=== PATIENT | female | born 1985 | race Caucasian/White ===

== ENCOUNTER 2018-04-10 18:20 | Observation (INO) | payer MEDICAID, OTHER ==
[~2018-04-10 18:20] MED LIST: LIDOCAINE 2% INJ-PF (20 MG/ML) 2 ML AMPUL ONE; ONDANSETRON HCL INJ/PF 4 MG/2 ML SDV ONE
[2018-04-10] MEDS ORDERED: FENTANYL CITRATE INJ/PF 100 MCG/2 ML AMPUL IV ONE (19:38)
[2018-04-10] MEDS ORDERED: NORMAL SALINE 1000 ML 1,000 ML IV ONE ×2 (19:39→23:00)
[2018-04-10] MEDS ORDERED: ONDANSETRON HCL INJ/PF 4 MG/2 ML SDV IV ONE ×2 (19:39→20:39)
--- NOTE | 2018-04-10 19:44 | ER Document Report ---
ED Medical Screen (RME) - General Chief Complaint: Abdominal Pain Stated Complaint: STOMACH PAIN, SOB Time Seen by Provider: 04/10/18 19:33 Primary Care Provider: LUDIN ROSE MD [Primary Care Provider] - Follow up as needed Mode of Arrival: Ambulatory Information source: Patient Notes: 33-year-old female presents emergency department with complaints of right lower quadrant pain. Patient states that this morning she began having some epigastric pain that has since moved to the right lower quadrant. She describes it as an aching sensation. She states that it is worse with movement. No alleviating factors. Patient is having some associated nausea but denies any vomiting, diarrhea, constipation, dysuria, hematuria, vaginal bleeding, vaginal discharge. Patient denies any medical problems. She does not take any medications. I have greeted and performed a rapid initial assessment of this patient. A comprehensive ED assessment and evaluation of the patient, analysis of test results and completion of the medical decision making process will be conducted by additional ED providers. PHYSICAL EXAMINATION: GENERAL: Well-appearing, well-nourished and in no acute distress. HEAD: Atraumatic, normocephalic. EYES: Pupils equal round extraocular movements intact, conjunctiva are normal. ENT: Nares patent NECK: Normal range of motion LUNGS: No respiratory distress Musculoskeletal: Normal range of motion NEUROLOGICAL: Normal speech, normal gait. PSYCH: Normal mood, normal affect. SKIN: Warm, Dry, normal turgor, no rashes or lesions noted. TRAVEL OUTSIDE OF THE [place] IN LAST 30 DAYS: No - Related Data Allergies/Adverse Reactions: acetaminophen [From Percocet] Adverse Reaction (Verified 04/10/18 19:31) itching, severe nausea oxycodone [From Percocet] Adverse Reaction (Verified 04/10/18 19:31) itching, severe nausea Past Medical History - Social History Frequency of alcohol use: Rare Drug Abuse: None Renal/ Medical History: Denies: Hx Peritoneal Dialysis Past Surgical History: Reports: Hx Orthopedic Surgery - noseComment Only: Hx Tonsillectomy - andnoids only - Immunizations Hx Diphtheria, Pertussis, Tetanus Vaccination: Yes Physical Exam - Vital signs Vitals: Temp Pulse Resp BP Pulse Ox 97.6 F 103 H 18 100/79 100 04/10/18 18:30 04/10/18 18:30 04/10/18 18:30 04/10/18 18:30 04/10/18 18:30 Course - Vital Signs Vital signs: Temp Pulse Resp BP Pulse Ox 97.6 F 103 H 18 100/79 100 04/10/18 18:30 04/10/18 18:30 04/10/18 18:30 04/10/18 18:30 04/10/18 18:30 Doctor's Discharge - Discharge Referrals: LUDIN ROSE MD [Primary Care Provider] - Follow up as needed
[2018-04-10 20:09] LABS: ABSOLUTE BASOPHILS # (AUTO) 0.1 10^3/uL (0.0-0.2); ABSOLUTE EOSINOPHILS # (AUTO) 0.1 10^3/uL (0.0-0.6); ABSOLUTE LYMPHOCYTES (AUTO) 1.4 10^3/uL (0.5-4.7); ABSOLUTE MONOCYTES (AUTO) 0.9 10^3/uL (0.1-1.4); ABSOLUTE NEUT (AUTO) 13.9 10^3/uL (1.7-8.2); BASOPHILS % (AUTO) 0.5 % (0-2); EOSINOPHILS % (AUTO) 0.9 % (0-6); HEMATOCRIT 41.2 % (36.0-47.0); HEMOGLOBIN 14.6 g/dL (12.0-15.5); LYMPHOCYTES % (AUTO) 8.7 % (13-45); MEAN CORPUSCULAR HEMOGLOBIN 29.9 pg (27.0-33.4); MEAN CORPUSCULAR HGB CONC 35.3 g/dL (32.0-36.0); MEAN CORPUSCULAR VOLUME 85 fl (80-97); MONOCYTES % (AUTO) 5.3 % (3-13); PLATELET COUNT 239 10^3/uL (150-450); RED BLOOD COUNT 4.87 10^6/uL (3.72-5.28); SEGMENTED NEUTROPHILS % (AUTO) 84.6 % (42-78); TOTAL CELLS COUNTED % (AUTO) 100 %; WHITE BLOOD COUNT 16.5 10^3/uL (4.0-10.5)
[2018-04-10 20:28] LABS: ALANINE AMINOTRANSFERASE 41 U/L (9-52); ALBUMIN 4.8 g/dL (3.5-5.0); ALKALINE PHOSPHATASE 64 U/L (38-126); ANION GAP 11 (5-19); APPEARANCE,URINE CLOUDY; ASPARTATE AMINO TRANSFERASE 23 U/L (14-36); BILIRUBIN,DIRECT 0.3 mg/dL (0.0-0.4); BILIRUBIN,TOTAL 0.4 mg/dL (0.2-1.3); BILIRUBIN,URINE NEGATIVE (NEGATIVE); BLOOD UREA NITROGEN 13 mg/dL (7-20); CALCIUM 9.2 mg/dL (8.4-10.2); CARBON DIOXIDE 30 mmol/L (22-30); CHLORIDE 101 mmol/L (98-107); COLOR,URINE YELLOW; GLUCOSE 91 mg/dL (75-110); GLUCOSE, URINE NEGATIVE (NEGATIVE); KETONES,URINE NEGATIVE (NEGATIVE); LEUKOCYTE ESTERASE,URINE MODERATE (NEGATIVE); LIPASE 45.1 U/L (23-300); NITRITE,URINE NEGATIVE (NEGATIVE); POTASSIUM 3.5 mmol/L (3.6-5.0); PROTEIN,URINE NEGATIVE (NEGATIVE); SODIUM 141.6 mmol/L (137-145); TOTAL PROTEIN 7.4 g/dL (6.3-8.2); URINE SPECIFIC GRAVITY 1.013
[2018-04-10] MEDS ORDERED: KETOROLAC TROMETHAMINE INJ/PF 30 MG/1 ML SDV IV ONE (20:39)
[2018-04-10] MEDS ORDERED: DEXTROSE 5%-LACTATED RINGERS 1,000 ML IV ONE (20:40)
[2018-04-10] MEDS ORDERED: PROPOFOL INJ 200 MG/20 ML VIAL IV ONE (21:20)
[2018-04-10] MEDS ORDERED: HYDROMORPHONE HCL INJ/PF 2 MG/ML AMPULE ONE (21:20)
[2018-04-10] MEDS ORDERED: MIDAZOLAM 2 MG/2 ML INJ ONE (21:20)
[2018-04-10] MEDS ORDERED: FENTANYL CITRATE INJ/PF 100 MCG/2 ML AMPUL ONE (21:20)
--- NOTE | 2018-04-10 21:50 | RADIOLOGY REPORT (SQ) ---
CT ABDOMEN PELVIS WITH IV CONTRAST HISTORY: Lower abdominal pain. COMPARISON: 02/25/2014 TECHNIQUE: CT scan of the abdomen and pelvis with IV contrast. This exam was performed according to our departmental dose-optimization program, which includes automated exposure control, adjustment of the mA and/or kV according to patient size and/or use of iterative reconstruction technique. FINDINGS: The lung bases are clear. No pleural or pericardial effusions. The liver, spleen, pancreas, gallbladder, adrenal glands, and kidneys are unremarkable. No urinary stones are seen. The pelvic organs are also unremarkable aside from a 2.5 cm right ovarian cyst. No small bowel obstruction. The appendix is normal. There is no evidence of diverticulitis. No intraperitoneal free fluid or free air is identified. The aorta is normal caliber. No acute osseous findings are appreciated. There is no body wall hernia. IMPRESSION: 1. No acute abdominal or pelvic pathology. 2. 2.5 cm right ovarian cyst. Consider pelvic ultrasound if indicated.
[2018-04-10] MEDS ORDERED: BUPIVACAINE HCL 0.25 % INJ/PF (2.5 MG/1 ML) 30 ML VIAL ONE (21:55)
--- NOTE | 2018-04-10 22:37 | PDOC CONSULTATION ---
Consultation Consult Date: 04/10/18 Consult reason:: abdominal pains History of Present Illness Admission Date/PCP: 04/10/18 21:37 Patient complains of: abdominal pains History of Present Illness: MARGY PATEL is a 33 year old female who suddenly c/o epigasric pains at 5 pm today. This almost immediately localized to the RLQ and associated with nausea. Denies fever/chills. Denies vaginal discharge. Past Surgical History Past Surgical History: Reports: Orthopedic Surgery - nose Comment Only: Tonsillectomy - andnoids only Social History Smoking Status: Current Every Day Smoker Family History Family History: Reviewed & Not Pertinent Parental Family History Reviewed: Yes - hypertension Children Family History Reviewed: No Sibling(s) Family History Reviewed.: No Medication/Allergy Home Medications: No Home Medications 04/10/18 Allergies/Adverse Reactions: acetaminophen [From Percocet] Adverse Reaction (Verified 04/10/18 19:31) itching, severe nausea oxycodone [From Percocet] Adverse Reaction (Verified 04/10/18 19:31) itching, severe nausea Review of Systems Constitutional: PRESENT: as per HPI Eyes: PRESENT: other - no visual/hearing changes Cardiovascular: PRESENT: other - no chest pains/cough Genitourinary: PRESENT: other - no dysuria Physical Exam Vital Signs: Temp Pulse Resp BP Pulse Ox 98.2 F 100 20 101/57 L 100 04/10/18 21:47 04/10/18 21:47 04/10/18 21:47 04/10/18 21:47 04/10/18 21:47 Intake & Output 04/09/18 04/10/18 04/11/18 06:59 06:59 06:59 Intake Total 1000 Balance 1000 Weight 78.2 kg General appearance: PRESENT: mild distress Head exam: PRESENT: atraumatic Eye exam: PRESENT: conjunctiva pink Mouth exam: PRESENT: moist Neck exam: PRESENT: full ROM Respiratory exam: PRESENT: clear to auscultation rigoberto Cardiovascular exam: PRESENT: RRR Pulses: PRESENT: normal radial pulses Vascular exam: PRESENT: normal capillary refill GI/Abdominal exam: PRESENT: soft, tenderness - RLQ Rectal exam: PRESENT: deferred Extremities exam: PRESENT: full ROM Musculoskeletal exam: PRESENT: ambulatory Neurological exam: PRESENT: alert, oriented to person, oriented to place, oriented to time, oriented to situation Psychiatric exam: PRESENT: appropriate affect Skin exam: PRESENT: normal color, warm Results Laboratory Results: 04/10/18 19:40 04/10/18 19:40 04/10/18 04/10/18 04/10/18 19:40 19:40 19:40 WBC 16.5 H RBC 4.87 Hgb 14.6 Hct 41.2 MCV 85 MCH 29.9 MCHC 35.3 RDW 13.0 Plt Count 239 Seg Neutrophils % 84.6 H Lymphocytes % 8.7 L Monocytes % 5.3 Eosinophils % 0.9 Basophils % 0.5 Absolute Neutrophils 13.9 H Absolute Lymphocytes 1.4 Absolute Monocytes 0.9 Absolute Eosinophils 0.1 Absolute Basophils 0.1 Sodium 141.6 Potassium 3.5 L Chloride 101 Carbon Dioxide 30 Anion Gap 11 BUN 13 Creatinine 0.64 Est GFR ( Amer) > 60 Est GFR (Non-Af Amer) > 60 Glucose 91 Calcium 9.2 Total Bilirubin 0.4 AST 23 ALT 41 Alkaline Phosphatase 64 Total Protein 7.4 Albumin 4.8 Lipase 45.1 Urine Color YELLOW Urine Appearance CLOUDY Urine pH 7.0 Ur Specific [place] 1.013 Urine Protein NEGATIVE Urine Glucose (UA) NEGATIVE Urine Ketones NEGATIVE Urine Blood NEGATIVE Urine Nitrite NEGATIVE Ur Leukocyte Esterase MODERATE H Urine WBC (Auto) 20 Urine RBC (Auto) 4 Impressions: Abdomen/Pelvis CT 04/10/18 21:12 IMPRESSION: 1. No acute abdominal or pelvic pathology. 2. 2.5 cm right ovarian cyst. Consider pelvic ultrasound if indicated. Assessment & Plan - Diagnosis (1) abdominal pains Is this a current diagnosis for this admission?: Yes (2) Right ovarian cyst Is this a current diagnosis for this admission?: Yes
[2018-04-10] MEDS ORDERED: ONDANSETRON HCL INJ/PF 4 MG/2 ML SDV IV PRN (22:38)
--- NOTE | 2018-04-11 00:45 | RADIOLOGY REPORT (SQ) ---
EXAM DESCRIPTION: US TRANSVAGINAL COMPLETED DATE/TME: 04/10/2018 22:44 CLINICAL HISTORY: 33 years Female, EVAL FOR OVARIAN PROBLEMS Comparison: None. Technique: Transvaginal. LIMITATIONS: None. FINDINGS: 10-cm uterus, 1.1-cm endometrial stripe thickness, 2.1-cm cervical length, 4.2-cm right ovary including a 2.6 cm likely benign hemorrhagic dominant cystic follicle (no follow-up imaging recommended), and 3.4-cm left ovary appear normal in size, shape, echotexture, and vascularity. No free fluid. IMPRESSION: Normal pelvic sonogram..
[2018-04-11] MEDS ORDERED: KETOROLAC TROMETHAMINE INJ/PF 30 MG/1 ML SDV IV PRN ×3 (01:04→01:38)
[2018-04-11] MEDS ORDERED: NORMAL SALINE 1000 ML 1,000 ML IV PRN ×2 (01:05→01:36)
[2018-04-11] MEDS ORDERED: NORMAL SALINE 1000 ML 1,000 ML IV ONE (01:45)
--- NOTE | 2018-04-11 02:23 | PDOC CONSULTATION ---
Consultation Consult Date: 04/11/18 Attending physician:: AMBREEN INFANTE Consult reason:: Right ovarian cyst History of Present Illness Admission Date/PCP: 04/10/18 23:42 Patient complains of: Right lower quadrant pain History of Present Illness: MARGY PATEL is a 33 year old , who presented to the emergency department complaining of right lower quadrant pain. Patient stated that the pain started yesterday. The pain started in her mid-epigastric region and radiated down to her right pelvic area. Patient complained of nausea but no vomiting. Patient s tated that the car ride to the hospital was excruciatingly painful. Whenever she had a bump in the road, the pain became worse. Patient underwent a CT which showed a normal appendix and a right 2.5 cm ovarian cyst. She subsequently underwent a pelvic ultrasound which showed the same diagnosis with no free fluid noted. Patient has no complaints of vaginal bleeding. Her last menstrual period was March 29. She stated that her last menstrual cycle was irregular. She is not currently using control. She assumes that she cannot get again, after trying for several years. Past Medical History LMP: 03/29/18 Last Pap Smear: 03/29/18 Gynecological Infection: No Gynecological History Note: Long history of abnormal Pap smears; patient underwent a LEEP 1 Female Delivery: Spontaneous Vaginal Delivery Pulmonary Medical History: Reports: Asthma - as a child Social History Smoking Status: Current Every Day Smoker Frequency of Alcohol Use: Occasional Hx Recreational Drug Use: No Hx Prescription Drug Abuse: No Family History Family History: Reviewed & Not Pertinent Parental Family History Reviewed: No - N/A Children Family History Reviewed: NA Sibling(s) Family History Reviewed.: NA Medication/Allergy Home Medications: No Home Medications 04/10/18 Allergies/Adverse Reactions: acetaminophen [From Percocet] Adverse Reaction (Verified 04/10/18 19:31) itching, severe nausea oxycodone [From Percocet] Adverse Reaction (Verified 04/10/18 19:31) itching, severe nausea Physical Exam - Physical Exam Vital Signs: Temp Pulse Resp BP Pulse Ox 97.9 F 85 18 96/51 L 100 04/11/18 00:25 04/11/18 00:25 04/11/18 00:25 04/11/18 00:25 04/11/18 00:25 Intake & Output 04/09/18 04/10/18 04/11/18 06:59 06:59 06:59 Intake Total 1000 Balance 1000 Weight 80.8 kg General appearance: PRESENT: no acute distress Respiratory exam: PRESENT: clear to auscultation rigoberto Cardiovascular exam: PRESENT: RRR GI/Abdominal exam: PRESENT: normal bowel sounds, soft, tenderness - Right lower quadrant/pelvis Extremities exam: ABSENT: calf tenderness, clubbing, full ROM, joint swelling, pedal edema, tenderness, +1 edema, +2 edema, other Result Laboratory Results: 04/10/18 19:40 04/10/18 19:40 04/10/18 04/10/18 04/10/18 19:40 19:40 19:40 WBC 16.5 H RBC 4.87 Hgb 14.6 Hct 41.2 MCV 85 MCH 29.9 MCHC 35.3 RDW 13.0 Plt Count 239 Seg Neutrophils % 84.6 H Lymphocytes % 8.7 L Monocytes % 5.3 Eosinophils % 0.9 Basophils % 0.5 Absolute Neutrophils 13.9 H Absolute Lymphocytes 1.4 Absolute Monocytes 0.9 Absolute Eosinophils 0.1 Absolute Basophils 0.1 Sodium 141.6 Potassium 3.5 L Chloride 101 Carbon Dioxide 30 Anion Gap 11 BUN 13 Creatinine 0.64 Est GFR ( Amer) > 60 Est GFR (Non-Af Amer) > 60 Glucose 91 Calcium 9.2 Total Bilirubin 0.4 AST 23 ALT 41 Alkaline Phosphatase 64 Total Protein 7.4 Albumin 4.8 Lipase 45.1 Urine Color YELLOW Urine Appearance CLOUDY Urine pH 7.0 Ur Specific [place] 1.013 Urine Protein NEGATIVE Urine Glucose (UA) NEGATIVE Urine Ketones NEGATIVE Urine Blood NEGATIVE Urine Nitrite NEGATIVE Ur Leukocyte Esterase MODERATE H Urine WBC (Auto) 20 Urine RBC (Auto) 4 Impressions: Abdomen/Pelvis CT 04/10/18 21:12 IMPRESSION: 1. No acute abdominal or pelvic pathology. 2. 2.5 cm right ovarian cyst. Consider pelvic ultrasound if indicated. Transvaginal US 04/10/18 22:44 IMPRESSION: Normal pelvic sonogram.. Assessment & Plan - Time Time Spent: 30 to 50 Minutes - Discussing ovarian cysts and how to prevent them - Inpatient Certification Based on my medical assessment, after consideration of the patient's comorbidities, presenting symptoms, or acuity I expect that the services needed warrant INPATIENT care.: No I certify that my determination is in accordance with my understanding of Medicare's requirements for reasonable and necessary INPATIENT services [42 CFR 412.3e].: Yes - Plan Summary Plan Summary: 1. Patient would like to go home--Discharge home 2. Outpatient follow-up with her GUE[facility] SPECIALIST 3. Time and pain management
[2018-04-11 02:55] VITALS: BP 101/57
--- NOTE | 2018-04-11 03:53 | PDOC H&P ---
History of Present Illness Admission Date/PCP: 04/10/18 23:42 Patient complains of: abdominal pains History of Present Illness: This is a 33 yo female who suddenly c/o epigastric pains at 5 pm 04/10/18. Pains then localized to RLQ associated with nausea. A CT scan was done which showed a right ovarian cyst. Denies fever/chills nor vaginal discharge. Past Medical History Pulmonary Medical History: Reports: Asthma - as a child Hematology: Reports: Anemia Past Surgical History Past Surgical History: Reports: Orthopedic Surgery - nose Comment Only: Tonsillectomy - andnoids only Social History Smoking Status: Current Every Day Smoker Frequency of Alcohol Use: Occasional Hx Recreational Drug Use: No Hx Prescription Drug Abuse: No Family History Family History: Reviewed & Not Pertinent Parental Family History Reviewed: Yes - hypertension Children Family History Reviewed: No Sibling(s) Family History Reviewed.: No Medication/Allergy Home Medications: Tramadol HCl [Ultram 50 mg Tablet] 50 mg PO Q6HP PRN 04/11/18 Allergies/Adverse Reactions: acetaminophen [From Percocet] Adverse Reaction (Verified 04/10/18 19:31) itching, severe nausea oxycodone [From Percocet] Adverse Reaction (Verified 04/10/18 19:31) itching, severe nausea Review of Systems Constitutional: PRESENT: as per HPI Eyes: PRESENT: other - no visual/hearing changes Cardiovascular: PRESENT: other - no chest pains,cough Gastrointestinal: PRESENT: abdominal pain, nausea Genitourinary: PRESENT: other - no dysuria Endocrine: PRESENT: other - polyuria Physical Exam Vital Signs: Temp Pulse Resp BP Pulse Ox 97.9 F 85 18 101/57 L 100 04/11/18 02:52 04/11/18 02:52 04/11/18 02:52 04/11/18 02:52 04/11/18 02:52 Intake & Output 04/09/18 04/10/18 04/11/18 06:59 06:59 06:59 Intake Total 1000 Balance 1000 Weight 80.8 kg General appearance: PRESENT: mild distress Head exam: PRESENT: atraumatic Eye exam: PRESENT: conjunctiva pink Mouth exam: PRESENT: moist Neck exam: PRESENT: full ROM Respiratory exam: PRESENT: clear to auscultation rigoberto Cardiovascular exam: PRESENT: RRR Pulses: PRESENT: normal radial pulses Vascular exam: PRESENT: normal capillary refill GI/Abdominal exam: PRESENT: soft, tenderness - RLQ Rectal exam: PRESENT: deferred Extremities exam: PRESENT: full ROM Musculoskeletal exam: PRESENT: ambulatory Neurological exam: PRESENT: alert, oriented to person, oriented to place, oriented to time, oriented to situation Psychiatric exam: PRESENT: appropriate affect Skin exam: PRESENT: normal color, warm Results Laboratory Results: 04/10/18 19:40 04/10/18 19:40 04/10/18 04/10/18 04/10/18 19:40 19:40 19:40 WBC 16.5 H RBC 4.87 Hgb 14.6 Hct 41.2 MCV 85 MCH 29.9 MCHC 35.3 RDW 13.0 Plt Count 239 Seg Neutrophils % 84.6 H Lymphocytes % 8.7 L Monocytes % 5.3 Eosinophils % 0.9 Basophils % 0.5 Absolute Neutrophils 13.9 H Absolute Lymphocytes 1.4 Absolute Monocytes 0.9 Absolute Eosinophils 0.1 Absolute Basophils 0.1 Sodium 141.6 Potassium 3.5 L Chloride 101 Carbon Dioxide 30 Anion Gap 11 BUN 13 Creatinine 0.64 Est GFR ( Amer) > 60 Est GFR (Non-Af Amer) > 60 Glucose 91 Calcium 9.2 Total Bilirubin 0.4 AST 23 ALT 41 Alkaline Phosphatase 64 Total Protein 7.4 Albumin 4.8 Lipase 45.1 Urine Color YELLOW Urine Appearance CLOUDY Urine pH 7.0 Ur Specific [place] 1.013 Urine Protein NEGATIVE Urine Glucose (UA) NEGATIVE Urine Ketones NEGATIVE Urine Blood NEGATIVE Urine Nitrite NEGATIVE Ur Leukocyte Esterase MODERATE H Urine WBC (Auto) 20 Urine RBC (Auto) 4 Impressions: Abdomen/Pelvis CT 04/10/18 21:12 IMPRESSION: 1. No acute abdominal or pelvic pathology. 2. 2.5 cm right ovarian cyst. Consider pelvic ultrasound if indicated. Transvaginal US 04/10/18 22:44 IMPRESSION: Normal pelvic sonogram.. Assessment & Plan - Diagnosis (1) abdominal pains Is this a current diagnosis for this admission?: Yes (2) Right ovarian cyst Is this a current diagnosis for this admission?: Yes - Time Time Spent: 30 to 50 Minutes - Inpatient Certification Medical Necessity: Need For IV Fluids, Need for Pain Control - Plan Summary Plan Summary: Hat Conditioner consult Toradol prn for pain Repeat CBC with diff in am
--- NOTE | 2018-04-11 11:33 | DISCHARGE SUMMARY E ---
Discharge Summary NAME: MARGY PATEL : 1985 AGE: 33Y ADMITTED: 04/10/2018 DISCHARGED: 04/11/2018 FINAL DIAGNOSIS: Abdominal pain due to right ovarian cyst. HOSPITAL COURSE: This is a 33-year-old female who complained of epigastric pain around 5:00 p.m. on 04/10/2018. Pain is localized in the right lower quadrant with nausea. She had a CAT scan of the abdomen in the ED, which showed normal appendix, but with a 2.5 cm ovarian cyst that was confirmed with transvaginal ultrasound. PIEROGI MAKER was consulted and feels that the patient's symptoms are all related to the right ovarian cyst. The patient was then discharged on 04/11/2018 primarily because of patient's request and approved by the PIEROGI MAKER physician, Dr. Lerma. Patient to be followed by her primary PIEROGI MAKER on a p.r.n. basis. The patient was given a prescription for Toradol 10 mg p.o. q.6 hours p.r.n. for pain. DICTATING PHYSICIAN: WILEY ASH M.D. [id number] PHY#: [id number] ID: [id number] JOB#: [id number] ACCT: [id number] cc:Varsha RETANA M.D. >
--- NOTE | 2018-04-12 14:37 | ER Document Report ---
Entered by MARIA ESTHER FONG SCRIBE 04/10/182044 Acting as scribe for:MARITZA NAVARRO MD ED General - General Chief Complaint: Abdominal Pain Stated Complaint: STOMACH PAIN, SOB Time Seen by Provider: 04/10/18 19:33 Primary Care Provider: LUDIN ROSE MD [EMERITUS] - Follow up as needed Mode of Arrival: Ambulatory Notes: Patient is a 33 year old female presenting to the emergency department complaining of abdominal pain and nausea onset around 1700. Patient states the pain was onset in her epigastric region and migrated to her RLQ in approximately 20 minutes. Patient states the pain is exacerbated with walking, coughing and general movement. She reports a history of ovarian cysts but states her current symptoms are far more severe. She denies any vomiting. TRAVEL OUTSIDE OF THE [place] IN LAST 30 DAYS: No - Related Data Allergies/Adverse Reactions: acetaminophen [From Percocet] Adverse Reaction (Verified 04/10/18 19:31) itching, severe nausea oxycodone [From Percocet] Adverse Reaction (Verified 04/10/18 19:31) itching, severe nausea Past Medical History - General Information source: Patient - Social History Smoking Status: Current Every Day Smoker Frequency of alcohol use: Rare Drug Abuse: None Family History: Reviewed & Not Pertinent Patient has suicidal ideation: No Patient has homicidal ideation: No Past Surgical History: Reports: Hx Orthopedic Surgery - noseComment Only: Hx Tonsillectomy - andnoids only - Immunizations Hx Diphtheria, Pertussis, Tetanus Vaccination: Yes Review of Systems - Review of Systems Constitutional: No symptoms reported EENT: No symptoms reported Cardiovascular: No symptoms reported Respiratory: No symptoms reported Gastrointestinal: See HPI, Abdominal pain, Nausea Genitourinary: No symptoms reported Female Genitourinary: No symptoms reported Musculoskeletal: No symptoms reported Skin: No symptoms reported Hematologic/Lymphatic: No symptoms reported Neurological/Psychological: No symptoms reported -: Yes All other systems reviewed and negative Physical Exam - Vital signs Vitals: Temp Pulse Resp BP Pulse Ox 97.6 F 103 H 18 100/79 100 04/10/18 18:30 04/10/18 18:30 04/10/18 18:30 04/10/18 18:30 04/10/18 18:30 - Notes Notes: GENERAL: Alert, interacts well. No acute distress. HEAD: Normocephalic, atraumatic. EYES: Pupils equal, round, and reactive to light. Extraocular movements intact. ENT: Oral mucosa moist, tongue midline. NECK: Full range of motion. Supple. Trachea midline. LUNGS: Clear to auscultation bilaterally, no wheezes, rales, or rhonchi. No respiratory distress. HEART: Regular rate and rhythm. No murmurs, gallops, or rubs. ABDOMEN: Soft, Maximal tenderness to McBurney's point, rebound tenderness to palpation. Non-distended. Decreased bowel sounds. EXTREMITIES: Moves all 4 extremities spontaneously. NEUROLOGICAL: Alert and oriented x3. Normal speech. PSYCH: Normal affect, normal mood. SKIN: Warm, dry, normal turgor. No rashes or lesions noted. Course - Vital Signs Vital signs: Temp Pulse Resp BP Pulse Ox 98.2 F 100 20 101/57 L 100 04/10/18 21:47 04/10/18 21:47 04/10/18 21:47 04/10/18 21:47 04/10/18 21:47 - Laboratory Result Diagrams: 04/10/18 19:40 04/10/18 19:40 Laboratory results interpreted by me: 04/10/18 04/10/18 04/10/18 19:40 19:40 19:40 WBC 16.5 H Seg Neutrophils % 84.6 H Lymphocytes % 8.7 L Absolute Neutrophils 13.9 H Potassium 3.5 L Urine Urobilinogen 2.0 H Ur Leukocyte Esterase MODERATE H - Diagnostic Test Radiology reviewed: Reports reviewed - 2.5 cm right ovarian cyst, no other abnormalities noted. Transvaginal ultrasound recommended. - Consults Dr. Jones Time consulted: 20:37 Consulted provider: other - He is in the operating room and request CT scan with IV and oral contrast. He did come to the emergency room a little bit later before the patient started drinking contrast and estimated change the order to a CT with IV contrast only. Discharge - Discharge Clinical Impression: Right lower quadrant abdominal pain, Ovarian cyst, right Leukocytosis Qualifiers: Leukocytosis type: unspecified Qualified Code(s): D72.829 - Elevated white blood cell count, unspecified Condition: Stable Disposition: ADMITTED OBSERVATION Admitting Provider: Surgicalist Unit Admitted: Surgical Floor Referrals: LUDIN ROSE MD [EMERITUS] - Follow up as needed Scribe Attestation: 04/10/18 21:32 I personally performed the services described in the documentation, reviewed and edited the documentation which was dictated to the scribe in my presence, and it accurately records my words and actions. I personally performed the services described in the documentation, reviewed and edited the documentation which was dictated to the scribe in my presence, and it accurately records my words and actions.
== END 2018-04-11 03:10 | disposition home or self-care (01) ==
LOC: ER 18:20 → EH 21:37 → UNDOADMIN 21:37 → 2N 23:42
PROVIDERS: ATTEND Surgery
DX: N83.201 Unspecified ovarian cyst, right side (principal); N92.6 Irregular menstruation, unspecified; D72.829 Elevated white blood cell count, unspecified; Z98.890 Other specified postprocedural states
CPT/HCPCS: 96376; 99285; 96361; 96374; 96375; 36415; 83690; 85025; 81025; 80053; 81001; 76830; 93976; 74177; G0378 ×2; J3010; J1885; J2405; J7030 ×2; J2704; J3490; J1170; J2250